=== PATIENT | female | born 1960 ===

== ENCOUNTER 2019-07-25 17:18 | Emergency (ER) | payer BC ==
[2019-07-25 17:32] VITALS: BP 129/85
[2019-07-25] MEDS ORDERED: Tetan/Diph/Pertus SYR(Tdap)* 0.5 ML SYR(BOOSTRIX) use SYR IM ONE (17:34)
--- NOTE | 2019-07-25 17:42 | UC ---
Skin Complaint HPI - HPI Summary HPI Summary: PATIENT WAS IN HER [place]WL[place] THIS MORNING WHEN SHE BUMPED HER HEAD INTO A NAIL THAT WAS IN THE CEILING SUSTAINING A SMALL PUNCTURE WOUND. STATES SHE HAD A VERY SMALL AMOUNT OF BLEEDING. IS HERE FOR HER TDAP BOOSTER. - History of Current Complaint Chief Complaint: UCWounds Time Seen by Provider: 07/25/19 17:25 Stated Complaint: PUNCTURE WOUND Hx Obtained From: Patient, Family/Bolt Header - Onset/Duration: Sudden Onset, Lasting Hours, Still Present Onset Severity: Mild Current Severity: Mild Pain Intensity: 1 Pain Scale Used: 0-10 Numeric Associated Signs & Symptoms: Positive: Negative - Allergy/Home Medications Allergies/Adverse Reactions: Allergies Allergy/AdvReac Type Severity Reaction Status Date / Time No Known Allergies Allergy Verified 07/25/19 17:32 Home Medications: Home Medications Lisinopril TAB* [Prinivil TAB 5 MG*] 5 mg PO DAILY 07/25/19 [History Confirmed 07/25/19] PMH/Surg Hx/FS Hx/Imm Hx Cardiovascular History: Hypertension Other Cancer History: UTERINE CANCER - Surgical History Surgical History: Yes Surgery Procedure, Year, and Place: HYSTERECTOMY - Family History Known Family History: Positive: Non-Contributory - Social History Alcohol Use: Daily Alcohol Amount: 1 GLASS WINE/NIGHT Substance Use Type: None Smoking Status (MU): Never Smoked Tobacco Review of Systems All Other Systems Reviewed And Are Negative: Yes Constitutional: Positive: Negative Skin: Positive: Other - PW SCALP Respiratory: Positive: Negative Cardiovascular: Positive: Negative Gastrointestinal: Positive: Negative Physical Exam Triage Information Reviewed: Yes Appearance: Well-Appearing, No Pain Distress, Well-Nourished Vital Signs: Initial Vital Signs Temp 98.4 F 07/25/19 17:25 Pulse 69 07/25/19 17:25 Resp 16 07/25/19 17:25 BP 129/85 07/25/19 17:25 Pulse Ox 97 07/25/19 17:25 Vital Signs Reviewed: Yes Eyes: Positive: Conjunctiva Clear ENT: Positive: Hearing grossly normal Neck: Positive: Supple Respiratory: Positive: No respiratory distress, No accessory muscle use Cardiovascular: Positive: Pulses Normal Abdomen Description: Positive: Soft Musculoskeletal: Positive: No Edema Neurological: Positive: Alert Psychological: Positive: Age Appropriate Behavior Skin: Positive: Other - UNABLE TO LOCATE PW IN SCALP. Course/Dx - Course Course Of Treatment: TDAP booster administered today. Keflex for infection prophylaxis given dirty nature of wound. Follow-up with PCP in [place] if needed. - Diagnoses Provider Diagnosis: Puncture wound of scalp, Need for Tdap vaccination Discharge ED - Sign-Out/Discharge Documenting (check all that apply): Patient Departure All imaging exams completed and their final reports reviewed: No Studies - Discharge Plan Condition: Stable Disposition: HOME Prescriptions: Cephalexin CAP* [Keflex 500 CAP*] 500 mg PO BID #10 cap Patient Education Materials: Puncture Wound (ED) Referrals: No Primary Care Phys,NOPCP [Primary Care Provider] - Additional Instructions: GIVEN THE DIRTY NATURE OF YOUR WOUND WILL GO AHEAD AND GIVE KEFLEX TWICE DAILY FOR 5 DAYS TO HELP PREVENT INFECTION. SEEK FOLLOW-UP IF YOU DEVELOP SPREADING REDNESS OF THE SKIN, PURULENT DRAINAGE, FEVER, INCREASED PAIN OR ANY OTHER CONCERNING SYMPTOMS. TETANUS IMMUNIZATION GIVEN (TDAP): You have been given an immunization against tetanus. Please record this in your records. In general, a booster is needed only once every 10 years. The tetanus shot protects against tetanus or "lockjaw," which is a complication of certain wound infections (the tetanus shot cannot protect against the actual infection). The immunization site may become warm and red due to local reaction. If this occurs, apply warm compresses and take aspirin or ibuprofen to reduce inflammation and discomfort. Return for evaluation if the reaction becomes severe. - Billing Disposition and Condition Condition: STABLE Disposition: Home
== END 2019-07-25 17:55 | disposition home or self-care (01) ==
LOC: UCEAST 17:18
DX: S01.03XA Puncture wound without foreign body of scalp, initial encounter (principal); W45.0XXA Nail entering through skin, initial encounter; Y93.89 Activity, other specified; Y92.008 Other place in unspecified non-institutional (private) residence as the place of occurrence of the external cause; Z23 Encounter for immunization; I10 Essential (primary) hypertension
CPT/HCPCS: 90471; 90715; 99212; G0463